=== PATIENT | male | born 2000 | race Caucasian/White ===

== ENCOUNTER 2019-12-23 08:41 | Inpatient (IN) ==
[2019-12-23] MEDS ORDERED: SODIUM CHLORIDE 0.9% 1000ML 2,000 ML IV ONE (09:34)
--- NOTE | 2019-12-23 09:41 | Emergency Department Note ---
History of Present Illness General Chief complaint: Arm Pain Stated complaint: WENT TO GYM 3DAYS AGO CANT MOVE ARMS,DARK URINE Time Seen by Provider: 12/23/19 09:13 Source: patient Mode of arrival: ambulatory Limitations: no limitations History of Present Illness Maximum Pain Intensity: 5 This patient is a 19-year-old male who presents the emergency department for evaluation of muscle soreness and dark-colored urine. Patient reports that he went to a workout class 3 days ago which involved strength training. He states that over the past 2 days, he has developed increased muscle soreness/stiffness and difficulty moving his arms. He states his pain is primarily in his upper arms and upper back. He states that his urine has been very dark in color and today is reddish. He denies any history of similar symptoms. Patient admits that he has not been working out over the past 3 or 4 months. He denies any chronic medical conditions. He denies chest pain, shortness of breath, abdominal pain, nausea or vomiting. He rates his current discomfort a 5/10. He denies any use of creatine or other supplements. Home Medications Home Medications Medication Instructions Recorded Confirmed Type ibuprofen [Advil] 200 mg PO UD PRN 12/23/19 12/23/19 History Allergies Allergy/AdvReac Type Severity Reaction Status Date / Time No Known Allergies Allergy Unverified 12/23/19 09:39 Past Med/Surg History Medical History (Updated 12/23/19 @ 16:30 by Merle Dumont PA-C) No significant past medical history Surgical History No significant past surgical history Social History Smoking Status: Never smoker Hx Substance Use: No Communication Ability: Effective [employer] Required: No Beliefs That Will Affect Care: None Current Living Situation: Family Other Information That Helps Us Care for You: No Feels Safe at Home: Yes Safety Concerns: Feels Safe At This Time Review of Systems A total of 10 systems reviewed and were otherwise negative Physical Exam Vital Signs Vital Signs - 24 hr 12/23/19 08:59 12/23/19 09:39 12/23/19 10:00 Temperature 37.0 C Temperature Source Oral Pulse Rate 85 75 74 Pulse Rate from SpO2 Sensor 76 75 Respiratory Rate 16 16 17 Blood Pressure 138/90 138/78 Blood Pressure Mean 106 102 Pulse Oximetry 98 99 98 Oxygen Delivery Method Room Air Sepsis Recent Fever Within 48 Hours No Sepsis New/Unexplained Change in Mental Status N/A Sepsis Action Taken by Nursing No Action Required 12/23/19 10:12 12/23/19 10:13 12/23/19 10:30 Temperature Temperature Source Pulse Rate 74 70 74 Pulse Rate from SpO2 Sensor 77 72 75 Respiratory Rate 18 17 18 Blood Pressure 134/80 128/88 Blood Pressure Mean 89 95 Pulse Oximetry 99 98 98 Oxygen Delivery Method Sepsis Recent Fever Within 48 Hours Sepsis New/Unexplained Change in Mental Status Sepsis Action Taken by Nursing 12/23/19 10:31 12/23/19 11:00 12/23/19 11:01 Temperature Temperature Source Pulse Rate 73 81 77 Pulse Rate from SpO2 Sensor 78 79 77 Respiratory Rate 15 12 19 Blood Pressure 133/81 Blood Pressure Mean 95 Pulse Oximetry 93 98 100 Oxygen Delivery Method Sepsis Recent Fever Within 48 Hours Sepsis New/Unexplained Change in Mental Status Sepsis Action Taken by Nursing 12/23/19 11:30 12/23/19 11:31 12/23/19 12:00 Temperature Temperature Source Pulse Rate 82 82 91 H Pulse Rate from SpO2 Sensor 83 80 92 H Respiratory Rate 15 12 Blood Pressure 140/85 147/86 H Blood Pressure Mean 101 108 Pulse Oximetry 98 93 99 Oxygen Delivery Method Sepsis Recent Fever Within 48 Hours Sepsis New/Unexplained Change in Mental Status Sepsis Action Taken by Nursing 12/23/19 12:01 12/23/19 12:30 12/23/19 12:31 Temperature Temperature Source Pulse Rate 85 96 H 85 Pulse Rate from SpO2 Sensor 93 H 94 H 85 Respiratory Rate 19 17 17 Blood Pressure 144/94 H Blood Pressure Mean 104 Pulse Oximetry 99 98 99 Oxygen Delivery Method Sepsis Recent Fever Within 48 Hours Sepsis New/Unexplained Change in Mental Status Sepsis Action Taken by Nursing 12/23/19 12:32 Temperature Temperature Source Pulse Rate 80 Pulse Rate from SpO2 Sensor 81 Respiratory Rate 17 Blood Pressure Blood Pressure Mean Pulse Oximetry 98 Oxygen Delivery Method Sepsis Recent Fever Within 48 Hours Sepsis New/Unexplained Change in Mental Status Sepsis Action Taken by Nursing VITALS: Vitals are noted on the nurse's note and reviewed by myself. Vital signs stable. GENERAL: This is a 19-year-old male, in no acute distress, well-developed well- nourished. SKIN: No edema, erythema or induration noted. EARS: External auditory canals clear, tympanic membranes pearly martin without erythema or effusion bilaterally. EYES: Pupils equal round and reactive to light and accommodation. MOUTH: Mucous membranes moist. Tonsils moderately enlarged bilaterally. Pharynx without erythema or exudate. NECK: Supple without nuchal rigidity. No lymphadenopathy. HEART: Regular rate and rhythm without murmurs gallops or rubs. LUNGS: Clear to auscultation bilaterally without wheezes, rales or rhonchi. ABDOMEN: Positive bowel sounds x 4. Soft, nontender to palpation. No guarding or rebound tenderness. MUSCULOSKELETAL: No swelling noted. There is tenderness to palpation throughout bilateral upper arms. Decreased range of motion at the shoulders and elbows due to patient pain. NEURO: Patient was alert and oriented to person place and time. Distal sensation intact. Course Consultations Consultation #1: Dr. Chaz Sykes [facility] [place] hospitalist Administered Medications Lactated Ringer's (Lr) 1,000 mls @ 175 mls/hr IV .Q5H43M YVONNE Stop: 12/24/19 06:08 Last Admin: 12/23/19 13:55 Dose: 175 mls/hr Documented by: [id number] Discontinued Medications Sodium Chloride (Nss 1000ml) 2,000 mls @ 999 mls/hr IV .Q2H1M ONE Stop: 12/23/19 11:34 Last Infusion: 12/23/19 11:40 Dose: 0 mls/hr Documented by: [id number] Admin: 12/23/19 09:43 Dose: 999 mls/hr Documented by: [id number] Medical Decision Making Differential Diagnosis Differential diagnosis includes rhabdomyolysis, acute kidney injury, dehydration, compartment syndrome, electrolyte imbalance, among others. Home Medications Current Medication List: was personally reviewed by me Laboratory Data Attestation: I reviewed the patient's lab results. Result diagrams: 12/23/19 09:30 12/23/19 09:30 Lab Results 12/23/19 12/23/19 12/23/19 Range/Units 09:30 09:30 09:30 WBC 7.66 (4.8-10.8) K/uL RBC 5.56 (4.7-6.1) M/uL Hgb 16.4 (14.0-18.0) g/dL Hct 47.1 (42-52) % MCV 84.7 (80-100) fL MCH 29.5 (25-34) pg MCHC 34.8 (32-36) g/dL RDW Std Deviation 35.9 L (36.4-46.3) fL RDW Coeff of Mo 11.7 (11.5-14.5) % Plt Count 232 (130-400) K/uL MPV 10.2 (7.4-10.4) fL Immature Gran % (Auto) 0.1 % Neut % (Auto) 75.0 % Lymph % (Auto) 17.8 % [place] % (Auto) 5.9 % Eos % (Auto) 1.2 % Baso % (Auto) 0.0 % Neut # (Auto) 5.75 (1.4-6.5) K/uL Lymph # (Auto) 1.36 (1.2-3.4) K/uL [place] # (Auto) 0.45 (0.11-0.59) K/uL Eos # (Auto) 0.09 (0-0.5) K/uL Baso # (Auto) 0.00 (0-0.2) K/uL Immature Gran # (Auto) 0.01 (0.00-0.02) K/uL Sodium 135 L (136-145) mmol/L Potassium 4.1 (3.5-5.1) mmol/L Chloride 101 (98-107) mmol/L Carbon Dioxide 26 (21-32) mmol/L Anion Gap 8.0 (3-11) BUN 13 (7-18) mg/dl Creatinine 0.97 (0.6-1.4) mg/dl Est Cr Clr Drug Dosing 110.8 ml/min Est GFR ( Amer) 128.8 Est GFR (Non-Af Amer) 111.1 BUN/Creatinine Ratio 12.9 (10-20) Glucose 89 (70-99) mg/dl Calcium 8.7 (8.5-10.1) mg/dl Magnesium 2.0 (1.8-2.4) mg/dl Total Bilirubin 1.7 H (0.2-1) mg/dl Direct Bilirubin (0-0.2) mg/dl AST 1900 H (15-37) U/L ALT 338 H (12-78) U/L Alkaline Phosphatase 63 (45-117) U/L Total Creatine Kinase > 489496 H (39-308) U/L Troponin I 0.041 (0-0.045) ng/ml Total Protein 8.4 H (6.4-8.2) gm/dl Albumin 4.3 (3.4-5.0) gm/dl Globulin 4.1 H (2.5-4.0) gm/dl Albumin/Globulin Ratio 1.1 (0.9-2) Urine Color Yellow Urine Appearance Clear (Clear) Urine pH 6.5 (4.5-7.5) Ur Specific [place] 1.010 (1.000-1.030) Urine Protein 2+ H (Negative) Urine Glucose (UA) Negative (Negative) Urine Ketones Negative (Negative) Urine Blood 3+ H (Negative) Urine Nitrite Negative (Negative) Urine Bilirubin Negative (Negative) Urine Urobilinogen Negative (Negative) Ur Leukocyte Esterase Negative (Negative) Urine WBC (Auto) 0 (0-5) /hpf Urine RBC (Auto) 0-4 (0-4) /hpf U Hyaline Cast (Auto) 1-5 (0-5) /lpf U Epithel Cells (Auto) 0-5 (0-5) /lpf Urine Bacteria (Auto) Negative (Negative) 12/23/19 Range/Units 09:30 WBC (4.8-10.8) K/uL RBC (4.7-6.1) M/uL Hgb (14.0-18.0) g/dL Hct (42-52) % MCV (80-100) fL MCH (25-34) pg MCHC (32-36) g/dL RDW Std Deviation (36.4-46.3) fL RDW Coeff of Mo (11.5-14.5) % Plt Count (130-400) K/uL MPV (7.4-10.4) fL Immature Gran % (Auto) % Neut % (Auto) % Lymph % (Auto) % [place] % (Auto) % Eos % (Auto) % Baso % (Auto) % Neut # (Auto) (1.4-6.5) K/uL Lymph # (Auto) (1.2-3.4) K/uL [place] # (Auto) (0.11-0.59) K/uL Eos # (Auto) (0-0.5) K/uL Baso # (Auto) (0-0.2) K/uL Immature Gran # (Auto) (0.00-0.02) K/uL Sodium (136-145) mmol/L Potassium (3.5-5.1) mmol/L Chloride (98-107) mmol/L Carbon Dioxide (21-32) mmol/L Anion Gap (3-11) BUN (7-18) mg/dl Creatinine (0.6-1.4) mg/dl Est Cr Clr Drug Dosing ml/min Est GFR ( Amer) Est GFR (Non-Af Amer) BUN/Creatinine Ratio (10-20) Glucose (70-99) mg/dl Calcium (8.5-10.1) mg/dl Magnesium (1.8-2.4) mg/dl Total Bilirubin (0.2-1) mg/dl Direct Bilirubin 0.3 H (0-0.2) mg/dl AST (15-37) U/L ALT (12-78) U/L Alkaline Phosphatase (45-117) U/L Total Creatine Kinase (39-308) U/L Troponin I (0-0.045) ng/ml Total Protein (6.4-8.2) gm/dl Albumin (3.4-5.0) gm/dl Globulin (2.5-4.0) gm/dl Albumin/Globulin Ratio (0.9-2) Urine Color Urine Appearance (Clear) Urine pH (4.5-7.5) Ur Specific [place] (1.000-1.030) Urine Protein (Negative) Urine Glucose (UA) (Negative) Urine Ketones (Negative) Urine Blood (Negative) Urine Nitrite (Negative) Urine Bilirubin (Negative) Urine Urobilinogen (Negative) Ur Leukocyte Esterase (Negative) Urine WBC (Auto) (0-5) /hpf Urine RBC (Auto) (0-4) /hpf U Hyaline Cast (Auto) (0-5) /lpf U Epithel Cells (Auto) (0-5) /lpf Urine Bacteria (Auto) (Negative) ECG Data Attestation: I personally reviewed and interpreted this ECG as follows: Indication: + back/shoulder pain Rate (beats per minute): 75 Rhythm: + normal sinus ECG Intervals/blocks: + Normal QRS and + Normal QT ECG ST segments: + Normal ST segments Comparison ECG Date: no prior available Blood Pressure Blood Pressure Findings: Elevated blood pressure Blood Pressure Disposition: further management by hospitalist PATRICK Narrative Continuous skid wrapper: Order was placed for continuous skid wrapper. Patient was placed on the skid wrapper. Patient was noted to be in normal sinus rhythm at an initial rate of 85 bpm. The patient is a 19-year-old male who presents today complaining of arm pain and dark-colored urine after an intense workout a few days ago. Labs are consistent with rhabdomyolysis. Patient has a CK of greater than 100,000. He has elevation of his LFTs with bilirubin 1.7, AST 1900, and ALT 338. Patient's kidney function is within normal limits, with a creatinine of 0.97. Patient was hydrated with 2 L of normal saline in the emergency department. He has no muscle swelling and certainly no evidence of compartment syndrome. The patient's case was discussed with the [facility]ist service, who agreed to evaluate the patient for further care. Impression & Plan Rhabdomyolysis Discharge Plan Visit Data Chief Complaint: Arm Pain Stated Complaint: WENT TO GYM 3DAYS AGO CANT MOVE ARMS,DARK URINE ED Provider: Duane Harman ED Midlevel Provider: Merle Dumont Discharge Problem: Rhabdomyolysis Patient Disposition: Admitted As Inpatient Discharge Instructions Interventions: ED Discharge Assessment Last Done: 12/23/19 13:26 Discharge Problem: Rhabdomyolysis Qualifiers: Rhabdomyolysis type: traumatic Encounter type: initial encounter Qualified Code(s): T79.6XXA - Traumatic ischemia of muscle, initial encounter
[2019-12-23 09:43] LABS: Eosinophils # (auto) 0.09 K/uL (0-0.5); Eosinophils % (auto) 1.2 %; Hematocrit (blood only) 47.1 % (42-52); Hemoglobin 16.4 g/dL (14.0-18.0); Immature Granulocytes # (auto) 0.01 K/uL (0.00-0.02); Immature Granulocytes % (auto) 0.1 %; Lymphocytes # (auto) 1.36 K/uL (1.2-3.4); Lymphocytes % (auto) 17.8 %; Mean Corpuscular Hemoglobin 29.5 pg (25-34); Mean Corpuscular Hgb Conc 34.8 g/dL (32-36); Mean Corpuscular Volume 84.7 fL (80-100); Mean Platelet Volume 10.2 fL (7.4-10.4); Monocytes # (auto) 0.45 K/uL (0.11-0.59); Monocytes % (auto) 5.9 %; Neutrophils # (auto) 5.75 K/uL (1.4-6.5); Platelet Count 232 K/uL (130-400); RDW Coefficient of Variation 11.7 % (11.5-14.5); RDW Standard Deviation 35.9 fL (36.4-46.3); Red Blood Count 5.56 M/uL (4.7-6.1); White Blood Count 7.66 K/uL (4.8-10.8)
[2019-12-23 09:58] LABS: Appearance Urine Clear (Clear); Bacteria Urine Automated Negative (Negative); Bilirubin Urine Negative (Negative); Blood Urine 3+ (Negative); Color Urine Yellow; Epithelial Cell Urine Auto 0-5 /lpf (0-5); Glucose Urine UA Negative (Negative); Ketones Urine Negative (Negative); Leukocyte Esterase Urine Negative (Negative); Nitrite Urine Negative (Negative); Protein Urine 2+ (Negative); RBC Urine Automated 0-4 /hpf (0-4); Urobilinogen Urine Negative (Negative); WBC Urine Automated 0 /hpf (0-5); pH Urine 6.5 (4.5-7.5)
[2019-12-23 10:07] LABS: Alanine Aminotransferase 338 U/L (12-78); Albumin Level 4.3 gm/dl (3.4-5.0); BUN Creatinine Ratio 12.9 (10-20); Blood Urea Nitrogen 13 mg/dl (7-18); Calcium 8.7 mg/dl (8.5-10.1); Carbon Dioxide 26 mmol/L (21-32); Chloride 101 mmol/L (98-107); Creatinine Clr Calc Pharmacy 110.8 ml/min; Est GFR (African American) 128.8; Est GFR (Non-African American) 111.1; Glucose 89 mg/dl (70-99); Potassium 4.1 mmol/L (3.5-5.1); Sodium 135 mmol/L (136-145)
[2019-12-23 10:33] LABS: Albumin Globulin Ratio 1.1 (0.9-2); Alkaline Phosphatase 63 U/L (45-117); Aspartate Aminotransferase 1900 U/L (15-37); Bilirubin,Total 1.7 mg/dl (0.2-1); Globulin 4.1 gm/dl (2.5-4.0); Total Protein 8.4 gm/dl (6.4-8.2); Troponin I 0.041 ng/ml (0-0.045)
[2019-12-23 11:30] LABS: Creatine Kinase > 100000 U/L (39-308)
--- NOTE | 2019-12-23 12:46 | History & Physical Report ---
Date of Service December 23, 2019 Assessment & Plan (1) Rhabdomyolysis: Admission and Anticipated Discharge Date Admission Date: Patient will be admitted to medical. CK over 100,000. Will place on IVF, WILL MONITOR His CK. Patient is already showing signs of improvement. will continue to monitor overnight. Possible discharge in AM DVT: ambulation History of Present Illness Chief Complaint: Muscle cramps Primary Care Provider: NO PCP This is a pleasant 19 yo male who reports to the hospital as he is having dark colored urine and muscle cramps. He reports he recently restarted working out on Saturday doing weight training. He reports he had stopped for about 3-5 months due to the quarantine. He felt pain in his upper extremities on Saturday but continued his regimen. On the following day, he had more pain, it was dull, and he had difficulty moving his arms over his head, he also had some thigh pain too. On Saturday, pain progressed and he could move his arms even less, and his urine became dark. He confided in his friends who told him it might be from the coffee he drank. He did not take his friends advice and decided to come in to the hospital. He was found to be in rhabdomyolysis. 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 Beliefs That Will Affect Care: None Current Living Situation: Family Other Information That Helps Us Care for You: No Feels Safe at Home: Yes Safety Concerns: Feels Safe At This Time Review of Systems Constitutional: + body aches, + malaise and + weakness; no fever and no sweats Eyes: no diplopia and no decreased night vision Ear, Nose, Mouth, Throat: no ear pain, no ear trauma and no tinnitus Respiratory: no cough and no dyspnea Cardiovascular: no chest pain with activity and no dyspnea at rest Gastrointestinal: no abdominal pain and no early satiety Genitourinary: no dysuria and no urinary hesitancy Musculoskeletal: no back pain and no radicular pain Integumentary: no rash Neurologic: no gait abnormality Psychiatric: no hopelessness Endocrine: no fatigue Hematologic / Lymphatic: no coagulopathy Physical Exam Constitutional: WD/WN, vitals as above Eyes: PERRL, conjunctivae normal, anicteric sclerae ENMT: external ear and nose normal, oropharynx normal Neck: trachea midline, no thyromegaly Respiratory: normal respiratory effort, lungs clear to auscultation Cardiovascular: RRR, no murmur, no edema Gastrointestinal (Abdomen): normal bowel sounds, soft, nontender, no hepatosplenomegaly Musculoskeletal: no cyanosis or clubbing, extremities motor strength 5/5 Neurologic: patellar DTR's 2+ bilat, sensation intact Psychiatric: A+Ox3, euthymic affect Results & Data Results & Data ([facility]) Vital Signs (Past 12 Hours) Vital Signs Temp Pulse Resp BP Pulse Ox 12/23/19 11:01 77 19 100 12/23/19 11:00 81 12 133/81 98 12/23/19 10:31 73 15 93 12/23/19 10:30 74 18 128/88 98 12/23/19 10:13 70 17 98 12/23/19 10:12 74 18 134/80 99 12/23/19 10:00 74 17 98 12/23/19 09:39 75 16 138/78 99 12/23/19 08:59 37.0 C 85 16 138/90 98 PG Care Time/CCT Total # of Minutes Spent Total Time Spent with Patient: Total time spent is greater than 50% in coordination of care (as documented) at patient's floor/unit and/or counseling patient: Coding Level of Care Code 22764 Initial Inpt Care Lvl 3 Diagnoses Rhabdomyolysis T79.6XXA Encounter type: initial encounter Rhabdomyolysis type: traumatic (1) Rhabdomyolysis Encounter type: initial encounter Rhabdomyolysis type: traumatic Qualified Code(s): T79.6XXA - Traumatic ischemia of muscle, initial encounter
[2019-12-23] MEDS ORDERED: ACETAMINOPHEN 325 MG TAB PO PRN (12:56)
[2019-12-23] MEDS: LACTATED RINGER'S 1,000 ML IV SCH ×2 (13:55→19:43)
--- NOTE | 2019-12-23 19:21 | Electrocardiogram Report ---
Test Reason : Blood Pressure : / mmHG Vent. Rate : 075 BPM Atrial Rate : 075 BPM P-R Int : 142 ms QRS Dur : 078 ms QT Int : 372 ms P-R-T Axes : 072 094 034 degrees QTc Int : 415 ms Normal sinus rhythm Possible Left atrial enlargement Rightward axis Borderline ECG No previous ECGs available Confirmed by Krzysztof Tse ([id number]) on 12/23/2019 7:20:30 PM Referred By: REFERRED SELF Confirmed By:Alvin Tse
[2019-12-23] MEDS ORDERED: MELATONIN 3 MG TAB PO PRN (22:33)
[2019-12-24] MEDS: LACTATED RINGER'S 1,000 ML IV SCH (00:37)
[2019-12-24 08:30] LABS: Alanine Aminotransferase 375 U/L (12-78); Albumin Level 3.8 gm/dl (3.4-5.0); BUN Creatinine Ratio 10.3 (10-20); Blood Urea Nitrogen 9 mg/dl (7-18); Calcium 9.3 mg/dl (8.5-10.1); Carbon Dioxide 27 mmol/L (21-32); Chloride 102 mmol/L (98-107); Creatinine Clr Calc Pharmacy 119.4 ml/min; Est GFR (Non-African American) 121.7; Glucose 87 mg/dl (70-99); Potassium 4.2 mmol/L (3.5-5.1); Sodium 137 mmol/L (136-145)
[2019-12-24 08:56] LABS: Alkaline Phosphatase 55 U/L (45-117); Aspartate Aminotransferase 1791 U/L (15-37); Bilirubin,Total 1.6 mg/dl (0.2-1); Globulin 3.6 gm/dl (2.5-4.0); Total Protein 7.4 gm/dl (6.4-8.2)
[2019-12-24] MEDS: SODIUM CHLORIDE 0.9% 1000ML 1,000 ML IV SCH ×3 (09:34→23:42)
[2019-12-24 11:10] LABS: Creatine Kinase > 100000 U/L (39-308)
--- NOTE | 2019-12-24 11:16 | Hospitalist Progress Note ---
Date of Service December 24, 2019 Assessment & Plan (1) Rhabdomyolysis: Severe, but fortunately no evidence of acute kidney injury. Continue copious hydration with NS. Daily CPK. Daily BMP. No ongoing muscle pain to suggest compartment syndrome. Counseled him that he would likely remain hospitalized for several days while CPK improves. (2) Acute hepatitis: Bili, transaminases all elevated. Etiology? Etoh? Viral pathogen? Acute liver injury from dehydration/"shock"? Other? Check RUQ u/s. Check COVID-19 (COVID can cause transaminitis but usually not to this degree), monospot with EBV reflex, CMV, and acute hepatitis profile. d/c tylenol on med list. Continue supportive care, IVF, repeat LFTs am, and check functional status with INR am. If any worsening then GI consultation. (3) Pharyngitis: Recent sore throat with enlarged, injected tonsils on exam. Check rapid strep; if negative then culture. monospot with EBV titer reflex. CMV. COVID-19. (4) Proteinuria: 2+ protein on u/a. 3+ blood but this is likely myoglobin (no RBCs or casts on microscopy). no evidence that this is glomerulonephritis. BPs wnl, no casts on micro, etc. recommend repeat u/a before discharge. (5) DVT prophylaxis: low risk defer on chemical means mother/father both updated at bedside questions answered ?palpable mass on abdominal exam If I continue to feel such then CT abd/pelvis Admission and Anticipated Discharge Date Admission Date: December 23, 2019 Subjective patient reports that his arms and legs (mylagias) feel much better. he denies that he had taken any tylenol in the days leading up to the hospital stay -- just advil. he did have right ear pain with sore throat for 3-4 days before doing the heavy exercise workouts earlier this week. the sore throat and ear pain are resolved. denies headache, fevers, chills, cough. he admits to drinking wine the night before one of the weight lifting work-outs but would not elaborate on the amount. he has been staying with his girlfriend on the [facility] campus for the last week. he has not personally been tested for COVID but his girlfriend was and she was negative. denies h/o liver disease. Review of Systems Constitutional: no fever, no chills, no fatigue and no anorexia Respiratory: no cough and no dyspnea Cardiovascular: no chest pain Gastrointestinal: no abdominal pain, no nausea and no vomiting Musculoskeletal: no joint pain, no myalgia and no body aches Physical Exam Constitutional: well developed and well nourished; no acute distress and no altered mental status ENMT: Throat: + tonsil abnormality (right tonsil 2-3+; left tonsil 1+; injected but no erythema ) Respiratory: normal respiratory effort, lungs clear to auscultation Cardiovascular: Rate/Rhythm: regular rate and regular rhythm Heart Sounds: normal S1 and normal S2; no murmur Vessels: posterior tibial pulses present and dorsalis pedis pulses present; no JVD Extremities: no edema Gastrointestinal (Abdomen): Inspection/Auscultation: normal bowel sounds; abdomen not distended Percussion/Palpation: abdomen soft; abdomen nontender liver edge palpable; just below the liver and near the midline is a ??mass (expected location of rectus sheath), about 3-4cm in size; uncertain if true mass but this location is not symmetric with the left side of abdomen Skin: no rashes, warm and dry Lymphatic: no cervical lymphadenopathy Results & Data Results & Data ([facility]) Vital Signs (Past 12 Hours) Vital Signs Temp Pulse Resp BP Pulse Ox 12/24/19 07:00 36.6 C 92 H 18 138/83 99 12/24/19 02:38 36.7 C 82 17 115/69 99 Laboratory Results Laboratory Results - last 24 hr 12/23/19 12/23/19 12/23/19 09:30 09:30 19:20 Sodium Potassium Chloride Carbon Dioxide Anion Gap BUN Creatinine Est Cr Clr Drug Dosing Est GFR ( Amer) Est GFR (Non-Af Amer) BUN/Creatinine Ratio Glucose Calcium Total Bilirubin Direct Bilirubin 0.3 H AST ALT Alkaline Phosphatase Total Creatine Kinase > 055623 H > 222886 H Total Protein Albumin Globulin Albumin/Globulin Ratio 12/24/19 07:32 Sodium 137 Potassium 4.2 Chloride 102 Carbon Dioxide 27 Anion Gap 8.0 BUN 9 Creatinine 0.90 Est Cr Clr Drug Dosing 119.4 Est GFR ( Amer) 141.0 Est GFR (Non-Af Amer) 121.7 BUN/Creatinine Ratio 10.3 Glucose 87 Calcium 9.3 Total Bilirubin 1.6 H Direct Bilirubin AST 1791 H ALT 375 H Alkaline Phosphatase 55 Total Creatine Kinase > 516298 H Total Protein 7.4 Albumin 3.8 Globulin 3.6 Albumin/Globulin Ratio 1.0 PG Care Time/CCT Total # of Minutes Spent Total Time Spent with Patient: Total time spent is greater than 50% in coordination of care (as documented) at patient's floor/unit and/or counseling patient: Coding Level of Care Code 93138 Subseq Hosp Care Lvl 3 Diagnoses Rhabdomyolysis T79.6XXA Encounter type: initial encounter Rhabdomyolysis type: traumatic Acute hepatitis B17.9 Pharyngitis J02.9 Pharyngitis/tonsillitis etiology: unspecified etiology Proteinuria R80.8 Proteinuria type: other DVT prophylaxis Z29.9 (1) Rhabdomyolysis Encounter type: initial encounter Rhabdomyolysis type: traumatic Qualified Code(s): T79.6XXA - Traumatic ischemia of muscle, initial encounter (2) Pharyngitis Pharyngitis/tonsillitis etiology: unspecified etiology Qualified Code(s): J02.9 - Acute pharyngitis, unspecified (3) Proteinuria Proteinuria type: other Qualified Code(s): R80.8 - Other proteinuria
--- NOTE | 2019-12-24 13:46 | Ultrasound Report ---
ABDOMINAL ULTRASOUND, RIGHT UPPER QUADRANT HISTORY: abnormal LFTs/transaminitis. COMPARISON: None. FINDINGS: Pancreas: The pancreas demonstrates a normal echotexture. Liver: Unremarkable. Gallbladder: No gallbladder wall thickening. No gallstones. CBD: 3 mm. Right kidney: No hydronephrosis. IMPRESSION: No significant abnormality identified within the right upper quadrant. ACT 112: Negative or not required by law. Electronically signed by: Froylan Coelho M.D. 12/24/2019 1:45 PM
[2019-12-24 13:48] LABS: Hepatitis B Surface Antigen Neg (Neg)
[2019-12-24 14:16] LABS: Hepatitis C IgG 13Yrs+Old_Rflx Neg (Neg)
[2019-12-25] MEDS: SODIUM CHLORIDE 0.9% 1000ML 1,000 ML IV SCH ×3 (05:37→18:32)
[2019-12-25 07:49] LABS: Basophils # (auto) 0.01 K/uL (0-0.2); Basophils % (auto) 0.2 %; Eosinophils # (auto) 0.09 K/uL (0-0.5); Eosinophils % (auto) 1.7 %; Hematocrit (blood only) 42.7 % (42-52); Hemoglobin 14.5 g/dL (14.0-18.0); Immature Granulocytes # (auto) 0.01 K/uL (0.00-0.02); Immature Granulocytes % (auto) 0.2 %; Lymphocytes # (auto) 1.23 K/uL (1.2-3.4); Lymphocytes % (auto) 22.6 %; Mean Corpuscular Hemoglobin 29.2 pg (25-34); Mean Corpuscular Volume 86.1 fL (80-100); Mean Platelet Volume 9.8 fL (7.4-10.4); Monocytes # (auto) 0.43 K/uL (0.11-0.59); Monocytes % (auto) 7.9 %; Neutrophils # (auto) 3.68 K/uL (1.4-6.5); Neutrophils % (auto) 67.4 %; Platelet Count 179 K/uL (130-400); RDW Coefficient of Variation 11.6 % (11.5-14.5); RDW Standard Deviation 36.4 fL (36.4-46.3); Red Blood Count 4.96 M/uL (4.7-6.1); White Blood Count 5.45 K/uL (4.8-10.8)
[2019-12-25 07:59] LABS: Prothrombin Time 10.7 Seconds (9.0-12.0)
[2019-12-25 08:19] LABS: Albumin Level 3.5 gm/dl (3.4-5.0); BUN Creatinine Ratio 13.5 (10-20); Calcium 9.1 mg/dl (8.5-10.1); Creatinine Clr Calc Pharmacy 127.1 ml/min; Est GFR (African American) 145.1; Est GFR (Non-African American) 125.2; Potassium 4.4 mmol/L (3.5-5.1)
[2019-12-25 08:33] LABS: Globulin 3.6 gm/dl (2.5-4.0); Total Protein 7.1 gm/dl (6.4-8.2)
--- NOTE | 2019-12-25 20:47 | Hospitalist Progress Note ---
Date of Service December 25, 2019 Assessment & Plan (1) Rhabdomyolysis: Severe, but fortunately no evidence of acute kidney injury. IMPROVING. Was >100,000; now down to low 70,000s. Continue copious hydration with NS. Daily CPK. Daily BMP. No ongoing muscle pain to suggest compartment syndrome. Rhabdo 2nd to two heavy workouts at the gym earlier this week. He had not worked out in several months. Admitted to poor hydration around the time of work-outs, and had been using alcohol around the same time as well. (2) Acute hepatitis: IMPROVING. HepB, C negative. Monospot negative; EBV titers pending. COVID-19 PCR negative. RUQ u/s negative. Etoh? Viral pathogen? "shock" liver as patient had been dehydrated? regardless of etiology LFTs improving. INR wnl. anticipate the LFTs will cont to normalize. await CMV, EBV, and HepA testing. avoid tylenol and etoh. repeat LFTs am. (3) Pharyngitis: Recent sore throat with enlarged, injected tonsils on exam. Clinically resolved. Rapid strep neg; culture pending. Monospot neg; EBV titer pending. CMV pending. Rapid COVID-19 NEGATIVE. (4) Proteinuria: 2+ protein on u/a. 3+ blood but this is likely myoglobin (no RBCs or casts on microscopy). no evidence that this is glomerulonephritis. BPs wnl, no casts on micro, etc. obtain repeat u/a. BMP in am. thus far Cr very stable. (5) DVT prophylaxis: low risk defer on chemical means mother/father both updated at bedside again today and questions answered ?palpable mass on abdominal exam this is the upper right-most rectus abdominus muscle anticipate he will be here through Saturday at minimum Admission and Anticipated Discharge Date Admission Date: December 23, 2019 Subjective patient feels well muscle discomforts fully resolved in arms no new complaints eating/drinking well ambulating parents at bedside during rounds today Review of Systems Constitutional: no body aches, no fatigue, no weakness and no anorexia Respiratory: no dyspnea Cardiovascular: no chest pain Gastrointestinal: no abdominal pain Physical Exam Constitutional: well developed and well nourished; no acute distress and no altered mental status ENMT: Throat: + tonsil abnormality (right tonsil 2+; left tonsil 1+; injection of tonsils resolved) Respiratory: normal respiratory effort, lungs clear to auscultation Cardiovascular: Rate/Rhythm: regular rate and regular rhythm Heart Sounds: normal S1 and normal S2; no murmur Vessels: posterior tibial pulses present and dorsalis pedis pulses present; no JVD Extremities: no edema Gastrointestinal (Abdomen): Inspection/Auscultation: normal bowel sounds; abdomen not distended Percussion/Palpation: abdomen soft and + hepatomegaly (Liver edge slightly palpable); abdomen nontender Skin: no rashes, warm and dry Lymphatic: no cervical lymphadenopathy Results & Data Results & Data ([facility]) Vital Signs (Past 12 Hours) Vital Signs Temp Pulse Resp BP Pulse Ox 12/25/19 15:10 37.0 C 66 16 131/80 97 Laboratory Results Laboratory Results - last 24 hr 12/25/19 12/25/19 12/25/19 07:32 07:32 07:32 WBC 5.45 RBC 4.96 Hgb 14.5 Hct 42.7 MCV 86.1 MCH 29.2 MCHC 34.0 RDW Std Deviation 36.4 RDW Coeff of Mo 11.6 Plt Count 179 MPV 9.8 Immature Gran % (Auto) 0.2 Neut % (Auto) 67.4 Lymph % (Auto) 22.6 [place] % (Auto) 7.9 Eos % (Auto) 1.7 Baso % (Auto) 0.2 Neut # (Auto) 3.68 Lymph # (Auto) 1.23 [place] # (Auto) 0.43 Eos # (Auto) 0.09 Baso # (Auto) 0.01 Immature Gran # (Auto) 0.01 PT 10.7 INR 1.0 Sodium 138 Potassium 4.4 Chloride 104 Carbon Dioxide 26 Anion Gap 7.0 BUN 11 Creatinine 0.84 Est Cr Clr Drug Dosing 127.1 Est GFR ( Amer) 145.1 Est GFR (Non-Af Amer) 125.2 BUN/Creatinine Ratio 13.5 Glucose 80 Calcium 9.1 Total Bilirubin 1.0 D AST 1460 H ALT 367 H Alkaline Phosphatase 52 Total Creatine Kinase Total Protein 7.1 Albumin 3.5 Globulin 3.6 Albumin/Globulin Ratio 1.0 12/25/19 07:32 WBC RBC Hgb Hct MCV MCH MCHC RDW Std Deviation RDW Coeff of Mo Plt Count MPV Immature Gran % (Auto) Neut % (Auto) Lymph % (Auto) [place] % (Auto) Eos % (Auto) Baso % (Auto) Neut # (Auto) Lymph # (Auto) [place] # (Auto) Eos # (Auto) Baso # (Auto) Immature Gran # (Auto) PT INR Sodium Potassium Chloride Carbon Dioxide Anion Gap BUN Creatinine Est Cr Clr Drug Dosing Est GFR ( Amer) Est GFR (Non-Af Amer) BUN/Creatinine Ratio Glucose Calcium Total Bilirubin AST ALT Alkaline Phosphatase Total Creatine Kinase 17823 H Total Protein Albumin Globulin Albumin/Globulin Ratio rapid strep neg throat cx pending but thus far neg PG Care Time/CCT Total # of Minutes Spent Total Time Spent with Patient: Total time spent is greater than 50% in coordination of care (as documented) at patient's floor/unit and/or counseling patient: Coding Level of Care Code 83858 Subseq Hosp Care Lvl 2 Diagnoses Rhabdomyolysis T79.6XXA Encounter type: initial encounter Rhabdomyolysis type: traumatic Acute hepatitis B17.9 Pharyngitis J02.9 Pharyngitis/tonsillitis etiology: unspecified etiology Proteinuria R80.8 Proteinuria type: other DVT prophylaxis Z29.9 (1) Proteinuria Proteinuria type: other Qualified Code(s): R80.8 - Other proteinuria (2) Rhabdomyolysis Encounter type: initial encounter Rhabdomyolysis type: traumatic Qualified Code(s): T79.6XXA - Traumatic ischemia of muscle, initial encounter (3) Pharyngitis Pharyngitis/tonsillitis etiology: unspecified etiology Qualified Code(s): J02.9 - Acute pharyngitis, unspecified
[2019-12-26] MEDS: SODIUM CHLORIDE 0.9% 1000ML 1,000 ML IV SCH ×4 (01:24→20:35)
[2019-12-26 08:20] LABS: Albumin Level 3.7 gm/dl (3.4-5.0); Calcium 8.9 mg/dl (8.5-10.1); Est GFR (African American) 141.7; Est GFR (Non-African American) 122.2; Potassium 4.2 mmol/L (3.5-5.1)
[2019-12-26 08:46] LABS: Bilirubin,Total 0.9 mg/dl (0.2-1); Globulin 3.6 gm/dl (2.5-4.0); Total Protein 7.3 gm/dl (6.4-8.2)
--- NOTE | 2019-12-26 12:30 | Hospitalist Progress Note ---
Date of Service December 26, 2019 Assessment & Plan (1) Rhabdomyolysis: Severe, but fortunately no evidence of acute kidney injury. Likely from intense work-up with poor hydration and alcohol intake. - No ongoing muscle pain to suggest compartment syndrome. - Was >100,000 on admission; now down to 45,000. - Continue hydration with NS. (2) Acute hepatitis: HepB, C negative. Monospot negative; EBV titers pending. COVID-19 PCR negative. RUQ u/s negative. - Await CMV, EBV, and HepA testing. - This is likely AST/ALT release from large muscle breakdown. Both present to some extent in skeletal muscle. - Anticipate the LFTs will normalize. (3) Pharyngitis: Recent sore throat with enlarged, injected tonsils on exam. * Rapid strep neg; culture pending. Monospot neg; EBV titer pending. CMV pending. Rapid COVID-19 was NEGATIVE. - Clinically resolved. (4) DVT prophylaxis: SCDs - Low DVT risk per admission calculator Admission and Anticipated Discharge Date Admission Date: December 23, 2019 Subjective Feels fine today. No major concerns. Specifically, no pain in the thighs, calfs, arms. Reports no fevers/chills, chest pain, shortness of breath, abdominal pain, nausea, or vomiting. Physical Exam Constitutional: WD/WN, vitals as above Eyes: EOM intact bilaterally; no conjunctival abnormality ENMT: external ear and nose normal, oropharynx normal Neck: trachea midline, no thyromegaly normal visual inspection Respiratory: normal respiratory effort, lungs clear to auscultation no respiratory distress Cardiovascular: RRR, no murmur, no edema Gastrointestinal (Abdomen): Inspection/Auscultation: abdomen normal to inspection; abdomen not distended Musculoskeletal: no cyanosis or clubbing, extremities motor strength 5/5 Skin: no rashes, warm and dry Neurologic: moves all extremities and awake Psychiatric: Orientation: alert, oriented to person and cooperative Results & Data Results & Data ([facility]) Vital Signs (Past 12 Hours) Vital Signs Temp Pulse Resp BP Pulse Ox 12/26/19 07:27 36.9 C 71 18 136/80 99 PG Care Time/CCT Total # of Minutes Spent Total Time Spent with Patient: Total time spent is greater than 50% in coordination of care (as documented) at patient's floor/unit and/or counseling p atient: Coding Level of Care Code 85358 Subseq Hosp Care Lvl 2 Diagnoses Rhabdomyolysis T79.6XXA Encounter type: initial encounter Rhabdomyolysis type: traumatic Acute hepatitis B17.9 Pharyngitis J02.9 Pharyngitis/tonsillitis etiology: unspecified etiology DVT prophylaxis Z29.9 (1) Rhabdomyolysis Encounter type: initial encounter Rhabdomyolysis type: traumatic Qualified Code(s): T79.6XXA - Traumatic ischemia of muscle, initial encounter (2) Pharyngitis Pharyngitis/tonsillitis etiology: unspecified etiology Qualified Code(s): J02.9 - Acute pharyngitis, unspecified
[2019-12-27] MEDS: SODIUM CHLORIDE 0.9% 1000ML 1,000 ML IV SCH ×2 (03:17→10:28)
[2019-12-27 07:19] LABS: Hematocrit (blood only) 44.2 % (42-52); Mean Corpuscular Hemoglobin 29.2 pg (25-34); Mean Corpuscular Hgb Conc 33.9 g/dL (32-36); Mean Platelet Volume 10.2 fL (7.4-10.4); Platelet Count 197 K/uL (130-400); RDW Coefficient of Variation 11.6 % (11.5-14.5); RDW Standard Deviation 36.3 fL (36.4-46.3); Red Blood Count 5.14 M/uL (4.7-6.1); White Blood Count 5.68 K/uL (4.8-10.8)
[2019-12-27 07:45] LABS: Appearance Urine Clear (Clear); Bilirubin Urine Negative (Negative); Blood Urine Negative (Negative); Color Urine Yellow; Glucose Urine UA Negative (Negative); Ketones Urine Negative (Negative); Leukocyte Esterase Urine Negative (Negative); Nitrite Urine Negative (Negative); Protein Urine Negative (Negative); Urobilinogen Urine Negative (Negative); pH Urine 6.5 (4.5-7.5)
[2019-12-27 07:53] LABS: Albumin Level 3.5 gm/dl (3.4-5.0); BUN Creatinine Ratio 10.2 (10-20); Calcium 9.6 mg/dl (8.5-10.1); Creatinine Clr Calc Pharmacy 125.6 ml/min; Est GFR (African American) 144.4; Est GFR (Non-African American) 124.6; Magnesium 1.7 mg/dl (1.8-2.4); Potassium 3.9 mmol/L (3.5-5.1)
[2019-12-27 08:26] LABS: Bilirubin,Total 1.1 mg/dl (0.2-1); Globulin 3.5 gm/dl (2.5-4.0); Phosphorus 3.5 mg/dl (2.5-4.9)
--- NOTE | 2019-12-27 16:46 | Discharge Summary ---
Date of Service December 27, 2019 Admission HPI Per Admitting Provider This is a pleasant 19 yo male who reports to the hospital as he is having dark colored urine and muscle cramps. He reports he recently restarted working out on Saturday doing weight training. He reports he had stopped for about 3-5 months due to the quarantine. He felt pain in his upper extremities on Saturday but continued his regimen. On the following day, he had more pain, it was dull, and he had difficulty moving his arms over his head, he also had some thigh pain too. On Saturday, pain progressed and he could move his arms even less, and his urine became dark. He confided in his friends who told him it might be from the coffee he drank. He did not take his friends advice and decided to come in to the hospital. He was found to be in rhabdomyolysis. Principal Diagnosis Rhabdomyolysis Discharge Exam Constitutional WD/WN, vitals as above Eyes EOM intact bilaterally; no conjunctival abnormality ENMT external ear and nose normal, oropharynx normal Neck trachea midline, no thyromegaly normal visual inspection Respiratory normal respiratory effort, lungs clear to auscultation no respiratory distress Cardiovascular RRR, no murmur, no edema Gastrointestinal (Abdomen) Inspection/Auscultation: abdomen normal to inspection; abdomen not distended Musculoskeletal no cyanosis or clubbing, extremities motor strength 5/5 Skin no rashes, warm and dry Neurologic moves all extremities and awake Psychiatric Orientation: alert, oriented to person and cooperative Discharge Data Allergies Allergy/AdvReac Type Severity Reaction Status Date / Time No Known Allergies Allergy Unverified 12/23/19 09:39 Consultations 12/23/19 11:57 ED Decision to Admit Stat Ordered Studies 12/24/19 09:20 US liver Routine Hospital Course (1) Rhabdomyolysis: Severe, but fortunately no evidence of acute kidney injury. Likely from intense work-up with poor hydration and alcohol intake. - No ongoing muscle pain to suggest compartment syndrome. - Was >100,000 on admission; now down to 11,000. - Will check CK with PCP in 1-2 weeks. Encouraged to stay hydrated and avoid exercise until cleared by PCP. (2) Acute hepatitis: HepB, C negative. Monospot negative; EBV titers pending. COVID-19 PCR negative. RUQ u/s negative. - Await CMV, EBV, and HepA testing. - This is likely AST/ALT release from large muscle breakdown. Both present to some extent in skeletal muscle. - Anticipate the LFTs will normalize. Can recheck in 1-2 weeks with CK. (3) Pharyngitis: Recent sore throat with enlarged, injected tonsils on exam. * Rapid strep neg; culture pending. Monospot neg; EBV titer pending. CMV pending. Rapid COVID-19 was NEGATIVE. - Clinically resolved. (4) DVT prophylaxis: SCDs - Low DVT risk per admission calculator Total Time Total Time Spent Total Time Spent (In Minutes): 35 Discharge Plan Discharge Items Patient Disposition: Home - Self-Care Reason For Visit: RHABDOMYOLISIS Discharge Diagnosis: Rhabdomyolysis Activity: Per Instructions section Activity Comment: Light walking only for 2 weeks. Exercise/Sports: Wait until after follow-up appointment Non-emergency contact: Primary Care Provider Call non-emergency contact if: your symptoms worsen and your pain is not controlled Follow-up/Referrals: PCP,NO [Primary Care Provider] - Diet: Regular Addtl Attending Provider Instructions: Mr. Osborne, Eugenio were admitted to the hospital with muscle cramps and dark urine. This was caused by muscle breakdown (called rhabdomyolysis) which was likely caused by your jump into weight lifting. Weight lifting is good, but going too hard, too fast can injure the muscles. This can also be worsened by some mild dehydration or alcohol consumption. For the next two weeks, please do NOT work out. You can definitely take walks, but should avoid even jogging or other cardio workouts. Now would be a good time to take up yoga! For the next two weeks, please avoid ALL alcoholic beverages as they can dehydrate you. You do NOT need to drink gallons of water or anything, but stay hydrated so that your urine is clear to light yellow. Your labs also showed some elevated liver enzymes; however, I am not all that worried about your liver. So far, all your liver testing (EBV, CMV, hepatitis) has been normal. When someone has rhabdomyolysis, it can elevated your liver enzymes because there are actually some of these enzymes in muscle tissue (even though they're called liver enzymes, they are not 100% exclusive to your liver). I think this will resolve completely as your muscles heal. If you have worsening muscle cramps, urine that starts to darker again, lightheadedness, dizziness, or other concerning symptoms, please return to the hospital. Please have your primary care doctor or student health check a CMP and CK 1-2 weeks from now. Pending Studies at Discharge: No Stand-Alone Forms: My [facility], Smoking Cessation Medications and DC Order Prescriptions: Continued ibuprofen [Advil] 200 mg Tablet 200 mg PO UD PRN (Reason: Pain) RF: 0 Discharge Orders: Discharge Order (Routine); Ordered 12/27/19 Ordered By: Rick Moyer Admission Data Admit Date/Time: 12/23/19 12:54 Attending Provider: Rick Moyer Admit Provider: Thad Harris Primary Care Provider: PCP,NO Other Providers: Rick Moyer Other Interventions: Discharge Summary Assessment (RN) Last Done: 12/27/19 11:13 Coding Level of Care Code D/C Day Management >30 mins Diagnoses Rhabdomyolysis T79.6XXA Encounter type: initial encounter Rhabdomyolysis type: traumatic Acute hepatitis B17.9 Pharyngitis J02.9 Pharyngitis/tonsillitis etiology: unspecified etiology DVT prophylaxis Z29.9
[2019-12-29 14:25] LABS: CMV IgG Antibody <0.60 U/mL; CMV IgM Antibody <30.00 AU/mL; Hepatitis A Antibody IgM NON-REACTIVE (NON-REACTIVE); Hepatitis B Core Antibody IgM NON-REACTIVE (NON-REACTIVE)
== END 2019-12-27 11:36 | disposition home or self-care (01) | DRG 558 ==
LOC: ED 08:41 → 2N 12:54 → SUATTDRO 12:54 → 2N 13:26